=== PATIENT | male | born 1975 | race Two or more races ===

== ENCOUNTER → 2023-02-25 | Outpatient (CLI) | payer MEDICAID | END | disposition home or self-care (01) | LOC: RT 13:27 | PROVIDERS: ATTEND Internal Medicine Pulmonary Disease | DX: J44.9 Chronic obstructive pulmonary disease, unspecified (principal); R06.00 Dyspnea, unspecified; F17.210 Nicotine dependence, cigarettes, uncomplicated; Z79.899 Other long term (current) drug therapy | CPT/HCPCS: 94060; 94727; 94729 ==

== ENCOUNTER → 2024-12-12 | Outpatient (CLI) | payer MEDICAID ==
[~2024-12-12] MED LIST: IOHEXOL 350 MG/ML 100ML IJ ONE
[2024-12-12 11:55] VITALS: BP 128/83; PULSE 79; RESP 18; O2SAT 95
[2024-12-12 12:07] VITALS: BP 135/92; PULSE 73; RESP 16; O2SAT 95
--- NOTE | 2024-12-12 13:08 | DVH ---
CTA Chest with intravenous contrast INDICATION: R/O PE COMPARISON: None TECHNIQUE: Multidetector spiral CTA of the chest was performed of the chest with intravenous contrast . PULMONARY ANGIOGRAPHY PROTOCOL was utilized using a bolus-tracking technique centered on the main p ulmonary artery. Axial, coronal and sagittal multiplanar and MIP reformats were performed. CONTRAST: Type of contrast: Omni 350 Contrast injected: 100 ml Radiation dose : Chest: CTDI volume is 12.41 mGy. Dose-length product is 524.65 mGy*cm The dose indicators for CT are the volume computed Tomography (CT) dose Index (CTDIvol) and the dose Length product (DLP), and are measured in units of mGy and mGy-cm, respectively. These indicators are not patient dose, but values generated from the CT scanner acquisition factors. The report includes radiation exposure data for exposures received during this examination. Findings: Pulmonary artery: No pulmonary embolism Lower neck: Normal thyroid. Lungs: No focal consolidation, pleural effusion or pneumothorax. Heart/Vascular Structures: Normal heart size. No pericardial effusion. Lymph Nodes: No adenopathy Pleura: No pleural effusion or significant pneumothorax. Musculoskeletal: No acute osseous abnormality. Soft tissues: Normal. Upper abdomen: Limited portions of the upper abdomen are unremarkable. IMPRESSION: 1. No pulmonary embolism. 2. No acute thoracic finding. HS:Y
== END | disposition home or self-care (01) ==
LOC: Rad HDHVI 11:31
PROVIDERS: ATTEND Internal Medicine Cardiovascular Disease
DX: R06.02 Shortness of breath (principal)
CPT/HCPCS: 71275; G0463; Q9967

== ENCOUNTER → 2024-12-14 | Outpatient (CLI) | payer MEDICAID | END | disposition home or self-care (01) | LOC: Rad HDHVI 10:53 | PROVIDERS: ATTEND Internal Medicine Cardiovascular Disease | DX: R06.02 Shortness of breath (principal) | CPT/HCPCS: 93306 ==

== ENCOUNTER → 2024-12-21 | Outpatient (CLI) | payer MEDICAID ==
--- NOTE | 2024-12-27 14:39 | DVHSR ---
APPROVED REPORT Exam: Nuclear Stress Test Indication: Dyspnea Ht: 5 ft 10 in Wt: 220 lbs BSA: 2.17 m2 HR: 84 bpm BP: 137/96 mmHg BMI: 31.56 Rhythm: NSR Medical History Medical History: Chest pain, Dyspnea, HTN, Hypercholesterolemia Medications: Amlodipine, Omeprazole, Atorvastatin, Gabapentin, Meloxicam, Terbinafine Allergies: No known drug allergies Stress Test Details Stress Test: Exercise stress testing was performed using a Myke protocol. HR Resting HR: 84 bpmMax Heart Rate (APMHR): 173.218853 bpm Max HR Achieved: 150 bpmTarget HR (85% APMHR): 147.872946 bpm % of APMHR: 86.71 Recovery HR: 96 bpm HR response to stress: Normal HR response to stress BP Resting BP: 137/96 mmHg Max BP: 153/66 mmHg Recovery BP: 131/67 mmHg BP response to stress: Normal blood pressure response to stress. ECG Resting ECG: Sinus Rhythm Stress ECG: Sinus Tachycardia Recovery ECG: Sinus Rhythm Clinical Reason for Termination: Target HR achieved Stress Symptoms: Dyspnea, Fatigue Exercise duration: 7 min sec Exercise capacity: 10.1 METs Symptoms improved during recovery. Stress ECG Conclusion NON ISCHEMIC CLINICAL RESPONSE NON ISCHEMIC ECG RESPONSE PERFUSION SCAN SHOWS INFERIOR WALL REVERSIBILITY EF >55% NM EXAM: Myocardial Perfusion REST/STRESS Imaging Protocol: Rest Tc-99m/Stress Tc-99m 1 day Resting Data Rest SPECT myocardial perfusion imaging was performed in supine position 30 minutes following the int ravenous injection of 10.98 mCi of Tc-99m Sestamibi. Time of rest injection: 1321 Time of rest imagin Administration Route: IV Administration Site: Left AC Exercise Stress At peak stress, the patient was injected intravenously with 32.9 mCi of Tc-99m Sestamibi. Time of stress injection: 1418 Time of stress imagin Administration Route: IV Administration Site: Left AC Heart Rate at time of stress injection: 150 bpm. Patient continued to exercise for 1 minute(s). Gated Stress SPECT was performed 15 minutes after stress injection. The images were gated to evaluate regional wall motion and calculate left ventricular ejection fracti on. Comments Cardiolite injection at 6 minutes, 24 seconds into test. Study Data Post stress, the left ventricular ejection was >55%.. Nuclear Conclusion NON ISCHEMIC CLINICAL RESPONSE NON ISCHEMIC ECG RESPONSE PERFUSION SCAN SHOWS INFERIOR WALL REVERSIBILITY EF >55%
== END | disposition home or self-care (01) ==
LOC: Rad HDHVI 13:12
PROVIDERS: ATTEND Internal Medicine Cardiovascular Disease
DX: I10 Essential (primary) hypertension (principal); R07.89 Other chest pain; R06.00 Dyspnea, unspecified; J45.50 Severe persistent asthma, uncomplicated; F15.91 Other stimulant use, unspecified, in remission; R91.1 Solitary pulmonary nodule; E78.00 Pure hypercholesterolemia, unspecified; R00.0 Tachycardia, unspecified; R53.83 Other fatigue
CPT/HCPCS: 78452; 93017; A9500; 96374

== ENCOUNTER → 2025-02-06 | Outpatient (CLI) | payer MEDICAID ==
[~2025-02-06] MED LIST changes: +AMLO1TAB22 PO; +ATOR20TA50 PO; +DILT120C54 PO; +GABA-1250 PO; -IOHEXOL 350 MG/ML 100ML IJ ONE; +MELO15TA29 PO
[2025-02-06 13:03] VITALS: BP 120/72; PULSE 80; RESP 18; O2SAT 93
[2025-02-06 13:14] VITALS: BP 116/68; PULSE 80; RESP 18; O2SAT 93
--- NOTE | 2025-02-06 13:27 | DVH ---
Chest x-ray Technique: PA and lateral views CLINICAL INDICATION: PRE OP CARDIAC CLEARANCE FINDINGS: Heart size is normal. No infiltrates or effusions. No bony thoracic abnormalities. IMPRESSION: 1. Normal chest x-ray.
== END | disposition home or self-care (01) ==
LOC: Rad HDHVI 12:58
PROVIDERS: ATTEND Internal Medicine Cardiovascular Disease
DX: Z01.818 Encounter for other preprocedural examination (principal); R06.02 Shortness of breath
CPT/HCPCS: 71046; 93005; G0463

== ENCOUNTER 2025-02-09 07:37 | Day surgery (SDC) | payer MEDICAID ==
[2025-02-06 14:15] LABS: Basophils # (auto) 0 10 ^3/uL (0-0.2); Basophils % (auto) 0.6 % (0.0-2.0); Eosinophils # (auto) 0.3 10 ^3/uL (0-0.8); Eosinophils % (auto) 4.4 % (0.0-7.0); Hemoglobin 15.2 g/dL (13.5-17.5); Lymphocytes # (auto) 1.8 10 ^3/uL (0.4-5.4); Lymphocytes % (auto) 30.1 % (10.0-50.0); Mean Corpuscular Hemoglobin 30.4 pg (28.0-32.0); Mean Corpuscular Hgb Conc. 33.8 g/dL (32.0-36.0); Mean Corpuscular Volume 89.7 fL (80.0-100.0); Monocytes # (auto) 0.5 10 ^3/uL (0-1.3); Monocytes % (auto) 8.2 % (0.0-12.0); Neutrophils # (auto) 3.4 10 ^3/uL (1.6-8.6); Neutrophils % (auto) 56.7 % (37.0-80.0); Platelet Count (auto) 252 10^3/uL (140-450); Red Blood Cells 5.02 10^6/uL (4.5-5.90); Red Cell Distribution Width 13.2 % (11.8-14.3)
[2025-02-06 14:28] LABS: Potassium 4.1 mmol/L (3.5-5.1); Sodium 142 mmol/L (136-145)
[2025-02-06 14:29] LABS: Anion Gap 9 (5-15); Calcium 9.8 mg/dL (8.7-10.4); Carbon Dioxide 25 mmol/L (20-31)
[2025-02-06 14:33] LABS: Chloride 108 mmol/L (98-107)
[2025-02-06 14:34] LABS: BUN/Creatinine Ratio 17.7 (10.0-20.0); Blood Urea Nitrogen 17 mg/dL (9-23); Glucose 90 mg/dL (74-106)
[2025-02-06 14:36] LABS: INR 1.01 (0.9-1.15); Partial Thromboplastin Time 29.9 SEC (24.5-34.5); Prothrombin Time 10.7 sec (9.3-11.8)
[~2025-02-09] VITALS: Ht 177.8 cm; Wt 99.3 kg
[2025-02-09] VITALS (8 sets, daily range): BP systolic 97–138; BP diastolic 50–86; PULSE 62–72; RESP 12–14; TEMP 97.6; O2SAT 94–95
[2025-02-09] MEDS ORDERED: fentaNYL CITRATE 100 MCG/2 ML VL ONE (08:58)
[2025-02-09] MEDS ORDERED: ANGIOMAX 250 MG VIAL IV ONE (08:58)
[2025-02-09] MEDS ORDERED: MIDAZOLAM HCL 2MG/2ML 2ml VIAL (1mg/ml) ONE (08:59)
[2025-02-09] MEDS ORDERED: SODIUM CHL 0.9% 0 ML ONE (08:59)
[2025-02-09] MEDS ORDERED: LIDOCAINE 2%HCL (LOCAL ANESTH.) INJ 20ML MDV ONE (08:59)
[2025-02-09 10:15] LABS: Base Excess -3.5 mmol/L (-2.0-3.0)
--- NOTE | 2025-02-09 10:33 | DVHOP ---
DATE OF SURGERY: 02/09/2025 PROCEDURES PERFORMED: * Selective left and right coronary angiography. * Ventriculogram. * Right iliac angiography. * Right heart catheterization. * [place] reading. * Conscious sedation. DESCRIPTION OF PROCEDURE: The patient was prepped and draped under sterile condition. Xylocaine 1% used to anesthetize the right groin. Using a Cook needle, right femoral artery was engaged with Seldinger technique, a 6-Uzbek sheath to the right femoral artery. Using a 6-Uzbek JL4 catheter and 6-Uzbek JR4 catheter, selective left and right coronary angiographies were performed. Using 6-Uzbek pigtail catheter, ventriculogram was done. Similarly, left groin was cannulated using a 6-Uzbek sheath introduced in the left groin into the left femoral vein. Using a 6-Uzbek balloon-tip thermodilution catheter, right-sided pressure tracings were obtained. There were no complications. The patient tolerated the procedure well. RESULTS: * Right heart catheterization showed a capillary wedge pressure of 15, PA pressure of 34/15, RV pressure of 35/10, and RA pressure of 8. * Left ventricular end-diastolic pressure of 15-18 mmHg with no gradient across the aortic valve. Left ventricular ejection fraction was around 55% with no gradient. Selective left and right coronary angiography revealed: * Left main patent. * Left anterior descending artery without any flow-restrictive lesion. * Circumflex without any flow-restrictive lesion. * Right coronary angiography without any flow-restrictive lesion. Thus, the patient with: * No pulmonary hypertension. * Capillary wedge pressure is within normal limits. * The patient's coronary angiography failed to demonstrate any flow-restrictive lesion and EF was preserved. At this time, the patient's symptoms are unrelated to cardiac parameters. The patient does not have any constrictive restrictive cardiomyopathy patterns. No elevated left-sided or right-sided pressures. Coronary angiography shows no coronary disease. At this time, conservative medical management. No catheter-based or surgical intervention is warranted. We will continue to follow the patient. Kt Alex MD SA/DEREK TID: [id number] RECEIPT: [id number]
--- NOTE | 2025-02-09 10:45 | DVHDS ---
DATE OF DISCHARGE: 02/09/2025 DISCHARGE DIAGNOSES: Normal coronary. No evidence of pulmonary hypertension. No evidence for any aortic valve stenosis. No evidence of systolic or diastolic heart failure at this time. HOSPITAL COURSE: The patient's right-sided catheterization shows no significant right-sided pressure elevation or left-sided pressure elevation. Coronary anatomy is within normal limits. EF is around 55%. The patient may be discharged home, followup with me in 1 weeks. Stable at the time of discharge. ACTIVITY: As instructed. DIET: 2 g sodium diet. A blood gas was done in the ascending aorta. The pH was 7.38, pCO2 of 36 and pO2 of 98. Therefore, the patient is mildly hypoxic. He was hyperventilating during the course of the procedure. We will continue to follow the patient. Kt Alex MD SA/JUAN TID: [id number] RECEIPT: [id number]
[2025-02-09] MEDS: HYDROmorphone HCL 2 MG/ML VL/or syr IV ONE (10:54)
--- NOTE | 2025-02-09 11:39 | DVHHP ---
ADMIT DATE: 02/09/2025 HISTORY OF PRESENT ILLNESS: The patient is a 49-year-old with a history of chest pain and shortness of breath. Echo shows mildly diminished left ventricular ejection fraction and stress test shows inferior wall reversibility and the patient is having ongoing chest pain. Because of the above presentation, it was felt that the patient should undergo coronary angiography, left and right heart catheterization should be done including [place] reading because of the constellation of symptoms, the patient's symptoms are out of proportion to clinical findings. PERTINENT MEDICAL HISTORY: Significant for hypertension, hyperlipidemia, remote history of tobacco use, discontinued smoking some 8 years ago. History of reactive airway disease, history of hypertension. No history of cardiac arrest. No diabetes. No history of renal failure. No history of congestive heart failure. Denies any PND, orthopnea. No palpitation. No syncopal episode. No history of seizure disorder. No history of melena, hematochezia. No bleeding diathesis. No hematemesis, hemoptysis or hematuria. Denies any mixed connective tissue disease. No history of any pericarditis or constrictive cardiomyopathy. No history of any recent trauma. No fever. No chills. No history of any recent travel abroad. PHYSICAL EXAMINATION: VITAL SIGNS: Blood pressure is 132/84, pulse of 60, O2 saturation 92% on room air. HEENT: Pupils are reactive. Funduscopic exam shows no AV nicking. No exudates. No papilledema. Sclerae anicteric. Oral mucosa moist. Posterior pharynx without any exudate. NECK: No JVD appreciated. Carotid pulses are 2+ and symmetrical. PULMONARY: Clear to auscultation. CARDIOVASCULAR: Regular rate, without S3 without S4. PMI is nondisplaced. ABDOMEN: Soft, nontender. Normal bowel sounds. Stool guaiac negative. EXTREMITIES: No edema noted. 1+ pulses. The patient, however, had right hip surgery. ASSESSMENT AND PLAN: Thus, the patient with ongoing chest pain, shortness of breath now to undergo coronary angiography, right and left heart catheterization, [place] reading to be done as well since the patient may have some symptoms of pulmonary embolism, PE and therefore secondary type 4 pulmonary hypertension. The patient is to undergo the above-mentioned procedure. Further recommendations after. Kt Alex MD SA/JUAN TID: [id number] RECEIPT: [id number]
[2025-02-09] MEDS: KETOROLAC TROMETH 30 MG/ML 1ML VIAL IV ONE (11:41)
== END 2025-02-09 13:25 | disposition home or self-care (01) ==
LOC: CATH 07:37
PROVIDERS: ATTEND Internal Medicine Cardiovascular Disease
DX: R07.9 Chest pain, unspecified (principal); R06.02 Shortness of breath; I10 Essential (primary) hypertension; I27.20 Pulmonary hypertension, unspecified; J45.909 Unspecified asthma, uncomplicated; E78.5 Hyperlipidemia, unspecified; Z72.0 Tobacco use; Z86.711 Personal history of pulmonary embolism
CPT/HCPCS: 36415; 80048; 85025; 85610; 85730; 93460; C1760; C1894; J1171; J1885; J2250; J3010; 99152